=== PATIENT | female | born 1995 | race Caucasian/White ===

== ENCOUNTER 2020-06-21 04:57 | Outpatient (CLI) | payer OTHER ==
[~2020-06-21 04:57] MED LIST: IBU800 MG PO; MACROBID 100 M100 MG PO; PYRIDIUM100 MG PO; ZOFRAN4 MG PO
== END 2020-06-21 09:46 | disposition home or self-care (01) ==
LOC: GENOP 04:57
DX: O32.1XX0 Maternal care for breech presentation, not applicable or unspecified (principal); O24.410 Gestational diabetes mellitus in pregnancy, diet controlled; O99.343 Other mental disorders complicating pregnancy, third trimester; F31.9 Bipolar disorder, unspecified; F41.9 Anxiety disorder, unspecified; O99.323 Drug use complicating pregnancy, third trimester; F11.23 Opioid dependence with withdrawal; F12.10 Cannabis abuse, uncomplicated; O99.333 Smoking (tobacco) complicating pregnancy, third trimester; F17.210 Nicotine dependence, cigarettes, uncomplicated; Z3A.37 37 weeks gestation of pregnancy; Z79.899 Other long term (current) drug therapy
CPT/HCPCS: 96360; 96361; 96372; J3105; J7120

== ENCOUNTER → 2020-07-02 | Outpatient (CLI) | payer OTHER ==
[~2020-07-02] MED LIST changes: +BUPRENORPHIN-N1 EACH SL; +DOCUSATE SODIU100 MG PO; +IBUPROFEN600 MG PO; +PRENATABS FA T1 EACH PO; +SUBOXONE 12 MG1 EACH SL
[2020-07-02 10:58] LABS: RED BLOOD COUNT 3.83 M/UL (4.00-5.10); WHITE BLOOD COUNT 10.9 K/UL (4.5-11.0)
== END ==
LOC: GENOP 09:51
PROVIDERS: Obstetrics & Gynecology
DX: Z01.812 Encounter for preprocedural laboratory examination (principal); Z20.822 Contact with and (suspected) exposure to COVID-19
CPT/HCPCS: 36415; 80307; 81001; 85025; U0003

== ENCOUNTER 2020-07-04 06:47 | Inpatient (IN) | payer OTHER ==
[~2020-07-04] VITALS: Ht 152.4 cm; Wt 77.1 kg
[~2020-07-04 06:47] MED LIST changes: -BUPRENORPHIN-N1 EACH SL; -DOCUSATE SODIU100 MG PO; -IBUPROFEN600 MG PO; -PRENATABS FA T1 EACH PO; -SUBOXONE 12 MG1 EACH SL
[2020-07-04] MEDS ORDERED: SUBOXONE 12 MG1 EACH SL (07:51)
[2020-07-04] MEDS ORDERED: PRENATABS FA T1 EACH PO (07:52)
[2020-07-04] MEDS ORDERED: DOCUSATE SODIU100 MG PO (08:32)
[2020-07-04] MEDS ORDERED: BUPRENORPHIN-N1 EACH SL (08:32)
[2020-07-04] MEDS ORDERED: IBUPROFEN600 MG PO (08:32)
[2020-07-05 04:37] LABS: HEMOGLOBIN 9.9 gm/dl (12.3-15.3)
== END 2020-07-07 11:08 | disposition home or self-care (01) | DRG 787 ==
LOC: OB 06:47
PROVIDERS: ADMIT Obstetrics & Gynecology
PROC: 3E02340 Introduction of Influenza Vaccine into Muscle, Percutaneous Approach (ICD-10-PCS; 2020-07-04)
PROC: 3E0234Z Introduction of Serum, Toxoid and Vaccine into Muscle, Percutaneous Approach (ICD-10-PCS; 2020-07-04)
PROC: 10D00Z1 Extraction of Products of Conception, Low, Open Approach (ICD-10-PCS; principal; 2020-07-04 08:40)
DX: O32.8XX0 Maternal care for other malpresentation of fetus, not applicable or unspecified (principal); O99.324 Drug use complicating childbirth; F31.81 Bipolar II disorder; Z3A.39 39 weeks gestation of pregnancy; Z37.0 Single live birth; O99.334 Smoking (tobacco) complicating childbirth; F17.210 Nicotine dependence, cigarettes, uncomplicated; F11.21 Opioid dependence, in remission; Z20.822 Contact with and (suspected) exposure to COVID-19; Z23 Encounter for immunization; O24.420 Gestational diabetes mellitus in childbirth, diet controlled
CPT/HCPCS: 36415; 80307; 81001; 82800; 82962; 85014; 85018; 85025; 87635; 90471; 90472; 90715; C9113; J0690; J1650; J1885; J2274; J2590; J3010; J7120; U0003

== ENCOUNTER 2021-06-08 18:29 | Emergency (ER) | payer OTHER ==
[~2021-06-08 18:29] MED LIST changes: +BUPRENORPHIN-N1 EACH SL; +DOCUSATE SODIU100 MG PO; +IBUPROFEN600 MG PO; +PRENATABS FA T1 EACH PO; +SUBOXONE 12 MG1 EACH SL
[2021-06-08 20:10] LABS: HEMOGLOBIN 13.3 gm/dl (12.3-15.3); RED BLOOD COUNT 4.52 M/UL (4.00-5.10); WHITE BLOOD COUNT 7.1 K/UL (4.5-11.0)
[2021-06-08 20:35] LABS: BUN/CREATININE RATIO 16 (0-10)
== END 2021-06-08 22:00 | disposition home or self-care (01) ==
LOC: ER1 18:29
PROVIDERS: Emergency Medicine
DX: R00.2 Palpitations (principal)
CPT/HCPCS: 71045; 80053; 80307; 82550; 82553; 83874; 84484; 84703; 85025; 85379; 93005; 96374; 99285; J2060